=== PATIENT | female | born 1990 | race Caucasian/White ===

== ENCOUNTER 2025-01-26 18:27 | Emergency (ER) | payer OTHER ==
[~2025-01-26] VITALS: Ht 162.5 cm; Wt 83.9 kg
[2025-01-26] MEDS ORDERED: SODIUM CHLORIDE 0.9% 1,000 ML IV ONE (19:05)
[2025-01-26] MEDS ORDERED: METHOCARBAMOL 500 MG TAB PO ONE (19:05)
[2025-01-26] MEDS ORDERED: IOHEXOL 300 MG/ML 100 ML VIAL IV ONE (19:25)
[2025-01-26 19:30] LABS: BILIRUBIN Negative (Negative); BLOOD Negative (Negative); CLARITY Clear (Clear); COLOR Yellow (Yellow); KETONE Negative (Negative); LEUKO ESTERASE Negative (Negative); NITRITE Negative (Negative); PH 5.0 (4.5-8.0); SPECIFIC GRAVITY 1.015 (1.001-1.030); UROBILINOGEN 0.2 E.U./dl (0.0-1.0)
[2025-01-26 19:34] LABS: BASO # 0.1 10*3/uL (0.0-0.1); BASO % 0.7 % (0.0-1.0); EOS # 0.6 10*3/uL (0.0-0.4); EOS % 4.8 % (1.0-4.0); MEAN CELL VOLUME 89.8 fl (81.0-99.0); MEAN CORPUSCULAR HGB 30.7 pg (27.0-31.0); MEAN PLATELET VOLUME 10.3 fl (9.6-12.3); MONO # 0.7 10*3/uL (0.1-1.0); MONO % 5.9 % (3.0-9.0); NEUT # 7.5 10*3/uL (2.3-7.9); NEUT % 61.3 % (47.0-73.0); NUCLEATED RED BLOOD CELL 0.0 % (0.0-0.0); NUCLEATED RED BLOOD CELL 0.0 10*3/uL (0.0-0.0); PLATELET COUNT AUTOMATED 346 10*3/uL (130-400); RED CELL DISTRI WIDTH 11.0 % (0-14.5)
[2025-01-26] MEDS ORDERED: Lidocaine Hydrochloride 2% 10 ML AMP SC ONE (19:35)
[2025-01-26 19:41] LABS: WBC 0-2 wbc/hpf (0-5)
[2025-01-26 19:42] LABS: MUCOUS 1+
[2025-01-26 19:54] LABS: BUN 13 mg/dl (9-23)
== END 2025-01-26 22:56 | disposition home or self-care (01) ==
LOC: ED 18:27
PROVIDERS: Nurse Practitioner Family
DX: N83.202 Unspecified ovarian cyst, left side (principal)